=== PATIENT | female | born 1995 | race African-American/Black ===

== ENCOUNTER 2017-07-29 12:19 | Emergency (ER) | payer OTHER ==
[~2017-07-29] VITALS: Ht 162.6 cm; Wt 83.9 kg
[2017-07-29 13:58] LABS: APPEARANCE,URINE CLEAR; BILIRUBIN, URINE NEGATIVE (NEGATIVE); COLOR,URINE PALE YELLOW; GLUCOSE, URINE (UA) NEGATIVE (NEGATIVE); KETONES,URINE NEGATIVE (NEGATIVE); LEUKOCYTE ESTERASE ,URINE 3+ (NEGATIVE); NITRITE,URINE NEGATIVE (NEGATIVE); PH,URINE 7 (4.5-8.0); PROTEIN,URINE NEGATIVE (NEGATIVE); UROBILINOGEN,URINE NORMAL MG/DL (0.0-1.0)
[2017-07-29] MEDS ORDERED: Lidocaine 1% MPF 10mg/ml 5ml INJ ONE (14:00)
[2017-07-29] MEDS ORDERED: Azithromycin 250mg tab ORAL ONE (14:00)
[2017-07-29] MEDS ORDERED: VALACYCLOVIR500 MG ORAL (14:01)
[2017-07-29] MEDS ORDERED: FLUCONAZOLE100 MG ORAL (14:01)
[2017-07-29] MEDS ORDERED: METRONIDAZOLE500 MG ORAL (14:01)
[2017-07-29] MEDS ORDERED: Bicillin LA 2,400,000 units IM ONE (14:15)
--- NOTE | 2017-07-29 14:17 | Emergency Room Report ---
History of Present Illness General Chief Complaint: Female Urogenital Problems Source: Patient Present Illness HPI 21 YO Female presents for dysuria, painful genital lesions, vaginal d/c x unknown length of time. Pt w. hx of Bipolar, schizophrenia. Regularly Prostitutes, has been treated in the past for STD's. Painful, rash to the external labia and now spreading down into the thighs Vaginal D/c and strong malodor. denies fevers or chills. reports dyspareunia. Denies swollen tender lymph-nodes , or joint pain. Pt. is poor historian due to psychiatric condition, most information about HPI and ROS is gathered from Pt's sister. Allergies: Coded Allergies: No Known Allergies (Unverified , 07/29/17) Patient History Past Medical History: see triage record Past Surgical History: none Pertinent Family History: none Last Menstrual Period: 07/16/17 Now: No : 0 Reviewed Nursing Documentation: PMH: Agreed, PSxH: Agreed Nursing Documentation-PMH Past Medical History: No History, Except For Hx Asthma: Yes Review of Systems All Other Systems: limited - due to pt. poor historian, Psych hx. Physical Exam Vital Signs Date Time Temp Pulse Resp B/P (MAP) Pulse Ox O2 Delivery O2 Flow Rate FiO2 07/29/17 12:46 98.6 110 18 104/69 98 Room Air 98.6 Sp02 EP Interpretation: reviewed, normal General Appearance: alert, GCS 15, non-toxic, mild distress Head: normocephalic, atraumatic ENT: hearing grossly normal, normal voice Neck: full range of motion Respiratory: chest non-tender, lungs clear, normal breath sounds, speaking full sentences Cardiovascular #1: regular rate, rhythm Gastrointestinal: non tender, soft Rectal: deferred Genitourinary: normal inspection, no CVA tenderness, adnexa normal, other - Positive CMT, multi colored vaginal d/c -moderate amount, and strong mal-odor, vesicular rash with grouped vessicles on the bilateral external vaginal labia and progresing down to the medial thigh. Musculoskeletal: back normal, gait/station normal, normal range of motion, non- tender Neurologic: alert, oriented x3, responsive, motor strength/tone normal, sensory intact, speech normal, grossly normal Psychiatric: judgement/insight normal Skin: normal color, warm/dry, well hydrated, rash - vesicular rash with grouped vessicles on the bilateral external vaginal labia and progresing down to the medial thigh. Lymphatic: no adenopathy Medical Decision Making PA Attestation Dr. Strickland is my supervising Physician whom patient management has been discussed with. Diagnostic Impression: Primary Impression: Vaginal discharge Additional Impressions: Vaginal lesion Herpes genitalia Qualified Codes: A60.00 - Herpesviral infection of urogenital system, unspecified Trichomonal infection UTI (urinary tract infection) Qualified Codes: N30.00 - Acute cystitis without hematuria ER Course 21 YO Female presents for dysuria, painful genital lesions, vaginal d/c x unknown length of time. Pt w. hx of Bipolar, schizophrenia. Regularly Prostitutes, has been treated in the past for STD's. Painful, rash to the external labia and now spreading down into the thighs Vaginal D/c and strong malodor. denies fevers or chills. reports dyspareunia. Denies swollen tender lymph-nodes , or joint pain. Pt. is poor historian due to psychiatric condition, most information about HPI and ROS is gathered from Pt's sister. Ddx considered but are not limited to UTi , STI, G & C, trichomonas, Vaginitis , cervicitis, bartholins gland cyst or cellulitis. syphillis, HIV just to name a few. Vital signs: are WNL, pt. is afebrile H&PE are most consistent with vaginitis, STI, herpes just to name a few. ORDERS: - UA: bacteria present, trichomonas -[place]: no yeast,no clue cells. ED INTERVENTIONS: -250mg Rocephin IM -1 gram Azithromycin PO -2.4 MIU PCn -G IM d/w sister/ responsible alliance party that full STD testing is recommended including testing for HIV. DISCHARGE: At this time pt. is stable for d/c to home. Will provide printed patient care instructions, and any necessary prescriptions. Care plan and follow up instructions have been discussed with the patient prior to discharge. Labs Test 07/29/17 13:45 Urine Color Pale yellow Urine Appearance Clear Urine pH 7 (4.5-8.0) Urine Specific [place] 1.005 (1.005-1.035) Urine Protein Negative (NEGATIVE) Urine Glucose (UA) Negative (NEGATIVE) Urine Ketones Negative (NEGATIVE) Urine Occult Blood Negative (NEGATIVE) Urine Nitrite Negative (NEGATIVE) Urine Bilirubin Negative (NEGATIVE) Urine Urobilinogen Normal MG/DL (0.0-1.0) Urine Leukocyte Esterase 3+ (NEGATIVE) Urine RBC 0-2 /HPF (0 - 2) Urine WBC 10-15 /HPF (0 - 2) Urine Squamous Epithelial Cells Few /LPF (NONE/OCC) Urine Bacteria Occasional /HPF (NONE) Urine Trichomonas Occasional /HPF (NONE) Urine HCG, Qualitative Negative (NEGATIVE) Last Vital Signs Date Time Temp Pulse Resp B/P (MAP) Pulse Ox O2 Delivery O2 Flow Rate FiO2 07/29/17 12:46 98.6 110 18 104/69 98 Room Air 98.6 Disposition: HOME, SELF-CARE Condition: Stable Scripts Nitrofurantoin Monohyd/M-Cryst* (MACROBID 100 MG*) 100 Mg Capsule 100 MG ORAL EVERY 12 HOURS for 5 Days, #10 CAP Prov: Erica Brambila 07/29/17 Valacyclovir Hcl* (VALTREX*) 500 Mg Tablet 1000 MG ORAL TWICE A DAY for 10 Days, #20 TAB Prov: Erica Brambila 07/29/17 Fluconazole (FLUCONAZOLE) 100 Mg Tablet 100 MG ORAL DAILY for 3 Days, #3 TAB 0 Refills Do Not START UNTIL Finnished with all other medications/antibiotics. Begin this medication last. Prov: Erica Brambila 07/29/17 Metronidazole* (FLAGYL*) 500 Mg Tablet 500 MG ORAL BID for 7 Days, #14 TAB 0 Refills Prov: Erica Brambila 07/29/17 Patient Instructions: Genital Herpes, HIV Antibody Test, Sexually Transmitted Disease, [id number], Trichomonas Test, Vaginal Yeast Infection, Adult, Vaginitis Additional Instructions: Take medications as directed. Follow up with an STD Testing Facility within 3 days, even if your symptoms have resolved. --Please review list of STD Testing Clinics. Return sooner to ED if new symptoms occur, or current symptoms become worse. ! Do not drink alcohol while taking Flagyl/Metronidazole as this will cause a skin reaction. - Please note that this Emergency Department Report was dictated using Pymetricstreasury accountant technology software, occasionally this can lead to erroneous entry secondary to interpretation by the dictation equipment. Erica Brambila Jul 29, 2017 14:17
[2017-07-29] MEDS ORDERED: NITROFURANTOIN100 M2 ORAL (14:19)
[2017-07-29 14:37] VITALS: BP 111/72
== END 2017-07-29 14:37 | disposition home or self-care (01) ==
LOC: EMR 12:58
DX: N89.8 Other specified noninflammatory disorders of vagina (principal); A60.00 Herpesviral infection of urogenital system, unspecified; A59.9 Trichomoniasis, unspecified; R39.0 Extravasation of urine; J45.909 Unspecified asthma, uncomplicated
CPT/HCPCS: 81003; 81025; 87086; 87210; 96372; 99284; J0696; Q0144

== ENCOUNTER 2017-11-11 11:06 | Emergency (ER) | payer OTHER ==
[~2017-11-11] VITALS: Ht 160 cm; Wt 81.6 kg
[~2017-11-11 11:06] MED LIST: FLUCONAZOLE100 MG ORAL; METRONIDAZOLE500 MG ORAL; NITROFURANTOIN100 M2 ORAL; VALACYCLOVIR500 MG ORAL
[2017-11-11 11:30] VITALS: BP 98/61
[2017-11-11 13:20] LABS: ANION GAP 10 mmol/L (5-15); BLOOD UREA NITROGEN 3 mg/dL (7-18); CALCIUM 9.4 MG/DL (8.5-10.1); CARBON DIOXIDE 25 MMOL/L (21-32); CHLORIDE 105 MMOL/L (98-107); CREATININE 0.6 MG/DL (0.55-1.30); POTASSIUM 3.1 MMOL/L (3.5-5.1); SODIUM 140 MMOL/L (136-145)
[2017-11-11 13:22] LABS: EOSINOPHILS % (AUTO) 2.5 % (0.0-3.0); HEMATOCRIT 41.2 % (37.0-47.0); HEMOGLOBIN 13.7 G/DL (12.0-16.0); LYMPHOCYTES % (AUTO) 17.2 % (20.0-45.0); MEAN CORPUSCULAR VOLUME 84 FL (80-99); MONOCYTES % (AUTO) 9.4 % (1.0-10.0); NEUTROPHILS % (AUTO) 69.9 % (45.0-75.0); PLATELET COUNT 347 K/UL (150-450); RED BLOOD COUNT 4.91 M/UL (4.20-5.40); RED CELL DISTRIBUTION WIDTH 12.3 % (11.6-14.8); WHITE BLOOD COUNT 6.9 K/UL (4.8-10.8)
[2017-11-11 13:24] LABS: ALANINE AMINOTRANSFERASE 40 U/L (12-78); ALBUMIN 3.5 G/DL (3.4-5.0); ALBUMIN/GLOBULIN RATIO 0.8 (1.0-2.7); ALKALINE PHOSPHATASE 104 U/L (46-116); ASPARTATE AMINO TRANSFERASE 40 U/L (15-37); BILIRUBIN,TOTAL 0.4 MG/DL (0.2-1.0); CREATINE KINASE 325 U/L (26-308)
[2017-11-11 14:20] VITALS: BP 100/58
--- NOTE | 2017-11-11 14:40 | Emergency Room Report ---
History of Present Illness General Chief Complaint: Female Urogenital Problems Source: Patient Present Illness HPI Patient brought by social media marketing analyst. She was in a treatment facility in [place]. She disappeared from there over a week ago. The social media marketing analyst found her in the streets today and brought her to [facility] for evaluation. The patient only complains about skin rash and voices. 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 She denies being raped. She states that at times when she is asking for money for this sex that she states the [employer] have threatened her, however she says that she threatened some back, mainly over money or drugs. She denies rape. She states she has both protected sex and unprotected sex. She denies vaginal discharge, dysuria. She states she doesn't believe she is . In July, she was treated for UTI, trich and Herpes. That time she was brought to the ED by her sister. She got Rocephin and azithromycin at that time. She does not know her HIV status. The patient is a long psychiatric history. She has not been taking medications since she left the facility. The medications include Lexapro, and Abilify. She denies suicidal ideation at this time or homicidal ideation. She states that the voices are not telling her to harm herself. She has skin rashes. She states her tetanus is up-to-date. She states that the skin rashes gets worse when she's been doing drugs. She feels like there is metal in her skin that is coming out when she does drugs. She denies any fevers, chills, nausea, vomiting, diarrhea. headache. Her appetite has been good. Allergies: Coded Allergies: No Known Allergies (Unverified , 07/29/17) Patient History Past Medical History: see triage record Social History: Reports: smoking, drug use Social History Narrative on streets Last Menstrual Period: 1 month ago Now: No Reviewed Nursing Documentation: PMH: Agreed; PSxH: Agreed Nursing Documentation-PMH Past Medical History: No History, Except For Hx Asthma: Yes History Of Psychiatric Problem: Yes - crystal meth use, schizophrenia, bipolar Review of Systems All Other Systems: negative except mentioned in HPI Physical Exam Vital Signs Date Time Temp Pulse Resp B/P (MAP) Pulse Ox O2 Delivery O2 Flow Rate FiO2 6/27/18 11:14 98.2 125 20 138/78 96 Room Air 98.2 Sp02 EP Interpretation: reviewed, normal General Appearance: well appearing, no apparent distress, GCS 15 - though somewhat delusional, other - dishevelled Head: normocephalic Eyes: bilateral eye PERRL, bilateral eye EOMI, bilateral eye Scleral Injection ENT: moist mucus membranes Neck: supple Respiratory: lungs clear, normal breath sounds Cardiovascular #1: regular rate, rhythm Cardiovascular #2: 2+ radial (R) Gastrointestinal: normal inspection, normal bowel sounds, non tender, no mass, non-distended Musculoskeletal: back normal, gait/station normal, normal range of motion Neurologic: alert, stabilizer operator III-XII nml as tested, motor strength/tone normal, DTRs symmetric, sensory intact, normal gait, speech normal, oriented - X2 not know date Psychiatric: no suicidal/homicidal ideation, other - auditory hallucinations - flat affect Reflexes: 2+ knee (R), 2+ knee (L) Skin: warm/dry, other - excoriations Medical Decision Making Diagnostic Impression: Primary Impression: Substance abuse Additional Impressions: Auditory hallucination Schizophrenia Qualified Codes: F20.9 - Schizophrenia, unspecified Hypokalemia ER Course Patient presents with noncompliance with a history of schizophrenia and drug use. Differential includes toxic ingestion, exacerbation of underlying cytopathy, electrolyte imbalance amongst others. Patient be evaluated with EKG , labs. The patient will be treated with IV hydration and given a dose of Abilify at this time. We will request evaluation by our social media marketing analyst here. At this point the patient appears significantly disabled. Will need re- assessment after hydration and treatment with Abilify. EKG no injury. Labs with normal CBC, low potassium, slightly elevated CPK, clear urine. Evaluated by our social media marketing analyst ([facility] had left). Apparently, [facility] have no plan for placement. Our contacted family who are willing to take patient when stable. Patient given Abilify and potassium. Resting and more purposeful. Patient signed out to Dr. Moreno. (Apparently, after I left, the patient threatened to leave. IV was removed and patient calmed. Then patient insisted on leave ED. She planned to go to a correction she knows. According to RN notes patient OX4, not suicidal, purposeful and denying auditory hallucinations. Family was notified. There was a discussion about calling [employer], however, the patient was not on a hold and had improved with treatment in the ED.) Laboratory Tests Test 11/11/17 12:35 11/11/17 14:19 White Blood Count 6.9 K/UL (4.8-10.8) Red Blood Count 4.91 M/UL (4.20-5.40) Hemoglobin 13.7 G/DL (12.0-16.0) Hematocrit 41.2 % (37.0-47.0) Mean Corpuscular Volume 84 FL (80-99) Mean Corpuscular Hemoglobin 28.0 PG (27.0-31.0) Mean Corpuscular Hemoglobin Concent 33.3 G/DL (32.0-36.0) Red Cell Distribution Width 12.3 % (11.6-14.8) Platelet Count 347 K/UL (150-450) Mean Platelet Volume 6.4 FL (6.5-10.1) L Neutrophils (%) (Auto) 69.9 % (45.0-75.0) Lymphocytes (%) (Auto) 17.2 % (20.0-45.0) L Monocytes (%) (Auto) 9.4 % (1.0-10.0) Eosinophils (%) (Auto) 2.5 % (0.0-3.0) Basophils (%) (Auto) 1.0 % (0.0-2.0) Sodium Level 140 MMOL/L (136-145) Potassium Level 3.1 MMOL/L (3.5-5.1) L Chloride Level 105 MMOL/L (98-107) Carbon Dioxide Level 25 MMOL/L (21-32) Anion Gap 10 mmol/L (5-15) Blood Urea Nitrogen 3 mg/dL (7-18) L Creatinine 0.6 MG/DL (0.55-1.30) Estimate Glomerular Filtration Rate > 60 mL/min (>60) Glucose Level 82 MG/DL (74-106) Calcium Level 9.4 MG/DL (8.5-10.1) Total Bilirubin 0.4 MG/DL (0.2-1.0) Aspartate Amino Transferase (AST) 40 U/L (15-37) H Alanine Aminotransferase (ALT) 40 U/L (12-78) Alkaline Phosphatase 104 U/L (46-116) Total Creatine Kinase 325 U/L (26-308) H Total Protein 8.1 G/DL (6.4-8.2) Albumin 3.5 G/DL (3.4-5.0) Globulin 4.6 g/dL Albumin/Globulin Ratio 0.8 (1.0-2.7) L Salicylates Level 1.3 ug/mL (2.8-20) L Acetaminophen Level < 2 MCG/ML (10-30) L Serum Alcohol < 3 mg/dL Urine Color Yellow Urine Appearance Slightly cloudy Urine pH 6 (4.5-8.0) Urine Specific [place] 1.020 (1.005-1.035) Urine Protein 1+ (NEGATIVE) H Urine Glucose (UA) Negative (NEGATIVE) Urine Ketones 2+ (NEGATIVE) H Urine Occult Blood 1+ (NEGATIVE) H Urine Nitrite Negative (NEGATIVE) Urine Bilirubin Negative (NEGATIVE) Urine Urobilinogen 4 MG/DL (0.0-1.0) H Urine Leukocyte Esterase 2+ (NEGATIVE) H Urine RBC 5-10 /HPF (0 - 2) H Urine WBC 2-4 /HPF (0 - 2) Urine Squamous Epithelial Cells Few /LPF (NONE/OCC) Urine Amorphous Sediment Few /LPF (NONE) H Urine Bacteria Few /HPF (NONE) Urine Yeast Occasional /HPF (NONE) H Urine HCG, Qualitative Negative (NEGATIVE) Urine Opiates Screen Negative (NEGATIVE) Urine Barbiturates Screen Negative (NEGATIVE) Phencyclidine (PCP) Screen Negative (NEGATIVE) Urine Amphetamines Screen Positive (NEGATIVE) H Urine Benzodiazepines Screen Negative (NEGATIVE) Urine Cocaine Screen Negative (NEGATIVE) Urine Marijuana (THC) Screen Negative (NEGATIVE) EKG Diagnostic Results Rate: normal Rhythm: NSR ST Segments: no acute changes Rhythm Strip Diag. Results EP Interpretation: yes Rhythm: NSR, no PVC's, no ectopy Last Vital Signs Date Time Temp Pulse Resp B/P (MAP) Pulse Ox O2 Delivery O2 Flow Rate FiO2 11/11/17 17:30 71 18 100/60 98 Room Air 11/11/17 16:30 98.3 98.3 Status: improved Disposition: ELOPED Condition: Unknown Referrals: [facility],REFERRING (PCP) Miller Echevarria M.D. Nov 11, 2017 14:40
[2017-11-11 14:46] LABS: APPEARANCE,URINE SLIGHTLY CLOUDY; BILIRUBIN, URINE NEGATIVE (NEGATIVE); GLUCOSE, URINE (UA) NEGATIVE (NEGATIVE); KETONES,URINE 2+ (NEGATIVE); LEUKOCYTE ESTERASE ,URINE 2+ (NEGATIVE); NITRITE,URINE NEGATIVE (NEGATIVE); PH,URINE 6 (4.5-8.0); PROTEIN,URINE 1+ (NEGATIVE); UROBILINOGEN,URINE 4 MG/DL (0.0-1.0)
[2017-11-11 14:48] LABS: COLOR,URINE YELLOW
[2017-11-11 15:32] VITALS: BP 82/62
[2017-11-11 16:30] VITALS: BP 97/49
[2017-11-11 17:30] VITALS: BP 100/60
[2017-11-11 18:00] VITALS: BP 100/71
== END 2017-11-11 18:00 | disposition left against medical advice (07) ==
LOC: EMR 11:57
DX: F15.10 Other stimulant abuse, uncomplicated (principal); R44.0 Auditory hallucinations; F20.9 Schizophrenia, unspecified; P74.3 Disturbances of potassium balance of newborn; F42.4 Excoriation (skin-picking) disorder; F31.9 Bipolar disorder, unspecified; J45.909 Unspecified asthma, uncomplicated
CPT/HCPCS: 36415; 80053; 80307; 80329; 81003; 81025; 82550; 85025; 87086; 93005; 96360; 99283; J8499